=== PATIENT | female | born 1935 | race Caucasian/White ===

== ENCOUNTER 2019-02-03 15:11 | Outpatient (CLI) | payer OTHER | END 2019-02-03 20:52 | disposition home or self-care (01) | LOC: SLB 15:11 | PROVIDERS: ATTEND Psychiatry & Neurology Psychiatry | DX: Z00.00 Encounter for general adult medical examination without abnormal findings (principal) | CPT/HCPCS: 87081 ==

== ENCOUNTER 2019-02-07 10:29 | Outpatient (CLI) | payer OTHER | END 2019-02-07 19:49 | disposition home or self-care (01) | LOC: SLB 10:29 | PROVIDERS: ATTEND Psychiatry & Neurology Psychiatry | DX: Z00.00 Encounter for general adult medical examination without abnormal findings (principal) | CPT/HCPCS: 87081 ==

== ENCOUNTER 2019-03-03 13:24 | Outpatient (CLI) | payer OTHER | END 2019-03-03 16:00 | disposition home or self-care (01) | LOC: SLB 13:24 | PROVIDERS: ATTEND Psychiatry & Neurology Psychiatry | DX: Z00.00 Encounter for general adult medical examination without abnormal findings (principal) | CPT/HCPCS: 87081 ==